=== PATIENT | male | born 1980 | race Two or more races ===

== ENCOUNTER 2016-12-28 09:20 | Emergency (ER) | payer MEDICAID ==
[~2016-12-28] VITALS: Ht 160 cm; Wt 54.4 kg
[2016-12-28] MEDS ORDERED: NKM (09:24)
[2016-12-28] MEDS ORDERED: Ketorolac 30mg Inj IV ONE (09:30)
[2016-12-28 09:31] VITALS: BP 136/82
--- NOTE | 2016-12-28 09:37 | Emergency Room Report ---
History of Present Illness General Chief Complaint: Abdominal Pain Source: Patient, EMS Present Illness HPI The patient is brought in by EMS. He complains of 3 hours of epigastric pain and recurrent nausea and vomiting. He states he has had this previously and been seen at other hospitals for the same. He's been in multiple hospitals for this. He states that he has been diagnosed with gastritis and a couple months ago this had an episode of pancreatitis. He states his symptoms are the same. He states he has a very sensitive stomach and notes that he did eat fast food last night and associates that with his symptoms. He denies alcohol use. He admits to regular marijuana use daily. He has no other complaints. Allergies: Coded Allergies: No Known Allergies (Unverified , 12/28/16) Patient History Past Medical History: see triage record, other - pancreatitis, gastritis Social History: Reports: alcohol use, drug use, Denies: smoking Reviewed Nursing Documentation: PMH: Agreed, PSxH: Agreed Nursing Documentation-PMH Past Medical History: No History, Except For Hx Gastrointestinal Problems: Yes - PANCREATITIS History Of Psychiatric Problem: Yes Review of Systems All Other Systems: negative except mentioned in HPI Physical Exam Vital Signs Date Time Temp Pulse Resp B/P Pulse Ox O2 Delivery O2 Flow Rate FiO2 12/28/16 09:19 90 20 140/80 98 Room Air 12/28/16 09:31 98.6 Sp02 EP Interpretation: reviewed, normal General Appearance: no apparent distress, alert, GCS 15, non-toxic, other - diaphoretic, recurrent vomiting Head: normocephalic, atraumatic Eyes: bilateral eye PERRL, bilateral eye normal inspection ENT: hearing grossly normal, normal pharynx, no angioedema, normal voice Neck: full range of motion, supple/symm/no masses Respiratory: chest non-tender, lungs clear, normal breath sounds, speaking full sentences Cardiovascular #1: regular rate, rhythm, no edema Gastrointestinal: normal bowel sounds, soft, non-distended, no guarding, no rebound, tenderness - epigastrium Rectal: deferred Musculoskeletal: back normal, gait/station normal, normal range of motion, non- tender Neurologic: alert, oriented x3, responsive, motor strength/tone normal, sensory intact, speech normal Psychiatric: judgement/insight normal, memory normal, mood/affect normal, no suicidal/homicidal ideation Skin: normal color, no rash, warm/dry, well hydrated Medical Decision Making Diagnostic Impression: Primary Impression: Gastritis Additional Impression: Cannabinoid hyperemesis syndrome ER Course I suspect this patient has a combination of gastritis and cannibas hyperemesis syndrome. The patient's lipase is slightly elevated. This is likely related to the emesis. The patient admits to heavy marijuana use. He is educated that if he stops using marijuana likely his symptoms will resolve. The patient has has an extensive evaluation at other hospitals to include ultrasound of his gallbladder and CAT scans. These have all been negative. I do not feel that given this patient's history and recurrent multiple episodes that abdominal imaging was indicated at this time. This is based on history, laboratory workup and physical exam. Station cream was applied to this patient's abdomen he had significant relief of his symptoms. I will also prescribe this to the patient. The patient has acid reflux medications at home and does not take them. He was given these medications again and instructed that most likely this would also help his condition. The patient is given close return precautions and followup instructions. Labs Test 12/28/16 09:40 White Blood Count 11.9 K/UL (4.8-10.8) Red Blood Count 4.95 M/UL (4.70-6.10) Hemoglobin 14.8 G/DL (14.2-18.0) Hematocrit 44.6 % (42.0-52.0) Mean Corpuscular Volume 90 FL (80-99) Mean Corpuscular Hemoglobin 29.9 PG (27.0-31.0) Mean Corpuscular Hemoglobin Concent 33.2 G/DL (32.0-36.0) Red Cell Distribution Width 11.9 % (11.6-14.8) Platelet Count 276 K/UL (150-450) Mean Platelet Volume 8.7 FL (6.5-10.1) Neutrophils (%) (Auto) 60.6 % (45.0-75.0) Lymphocytes (%) (Auto) 31.1 % (20.0-45.0) Monocytes (%) (Auto) 5.3 % (1.0-10.0) Eosinophils (%) (Auto) 1.9 % (0.0-3.0) Basophils (%) (Auto) 1.1 % (0.0-2.0) Sodium Level 143 mEQ/L (135-145) Potassium Level 4.1 mEQ/L (3.4-4.9) Chloride Level 104 mEQ/L (98-107) Carbon Dioxide Level 16 mEQ/L (20-30) Anion Gap 23 (5-15) Blood Urea Nitrogen 10 mg/dL (7-23) Creatinine 1.1 mg/dL (0.7-1.2) Estimat Glomerular Filtration Rate > 60 mL/min (>60) Glucose Level 151 mg/dL (74-106) Calcium Level 9.9 mg/dL (8.6-10.2) Total Bilirubin 0.3 mg/dL (0.0-1.2) Aspartate Amino Transf (AST/SGOT) 17 U/L (5-40) Alanine Aminotransferase (ALT/SGPT) 13 U/L (3-41) Alkaline Phosphatase 59 U/L (40-129) Total Protein 7.5 g/dL (6.6-8.7) Albumin 4.9 g/dL (3.5-5.2) Globulin 2.6 g/dL Albumin/Globulin Ratio 1.8 (1.0-2.7) Lipase 78 U/L (< 60) Last Vital Signs Date Time Temp Pulse Resp B/P Pulse Ox O2 Delivery O2 Flow Rate FiO2 12/28/16 09:31 98.6 73 18 136/82 99 Room Air Disposition: HOME, SELF-CARE Condition: Improved Patient Instructions: Gastritis, Adult ZANDRA DANIELS D.O. Dec 28, 2016 09:37
[2016-12-28] MEDS ORDERED: Famotidine 20 MG/ 2ML VIAL IVP ONE (09:45)
[2016-12-28] MEDS ORDERED: Capsaicin 0.075% Cream TOPIC SCH (09:45)
[2016-12-28 10:12] LABS: ALANINE AMINOTRANSFERASE 13 U/L (3-41); ALBUMIN/GLOBULIN RATIO 1.8 (1.0-2.7); ANION GAP 23 (5-15); ASPARTATE AMINO TRANSFERASE 17 U/L (5-40); CALCIUM 9.9 mg/dL (8.6-10.2); CARBON DIOXIDE 16 mEQ/L (20-30); CHLORIDE 104 mEQ/L (98-107); CREATININE 1.1 mg/dL (0.7-1.2); GLOMERULAR FILTRATION RATE > 60 mL/min (>60); HEMOLYSIS 20; LIPASE 78 U/L (< 60); POTASSIUM 4.1 mEQ/L (3.4-4.9); SODIUM 143 mEQ/L (135-145); TOTAL PROTEIN 7.5 g/dL (6.6-8.7)
[2016-12-28 11:04] LABS: BASOPHILS % (AUTO) 1.1 % (0.0-2.0); EOSINOPHILS % (AUTO) 1.9 % (0.0-3.0); LYMPHOCYTES % (AUTO) 31.1 % (20.0-45.0); MEAN CORPUSCULAR HEMOGLOBIN 29.9 PG (27.0-31.0); MEAN CORPUSCULAR HGB CONC 33.2 G/DL (32.0-36.0); MEAN CORPUSCULAR VOLUME 90 FL (80-99); MEAN PLATELET VOLUME 8.7 FL (6.5-10.1); MONOCYTES % (AUTO) 5.3 % (1.0-10.0); NEUTROPHILS % (AUTO) 60.6 % (45.0-75.0); PLATELET COUNT 276 K/UL (150-450); RED BLOOD COUNT 4.95 M/UL (4.70-6.10); RED CELL DISTRIBUTION WIDTH 11.9 % (11.6-14.8); WHITE BLOOD COUNT 11.9 K/UL (4.8-10.8)
[2016-12-28] MEDS ORDERED: PEPCID40 MG PO (11:32)
[2016-12-28] MEDS ORDERED: MAALOX MAXIMUM355 M1 PO (11:32)
[2016-12-28] MEDS ORDERED: DiphenhydrAMINE 50mg/ml Inj IVP ONE (12:00)
[2016-12-28] MEDS ORDERED: Metoclopramide 10mg/2ml Inj IVP ONE (12:15)
[2016-12-28 12:24] VITALS: BP 116/55
[2016-12-28] MEDS ORDERED: Morphine Sulfate 4mg/ml Inj IVP ONE (12:30)
[2016-12-28 13:37] VITALS: BP 119/57
[2016-12-28] MEDS ORDERED: LORazepam Inj 2mg/ml 1ml IV ONE (14:00)
[2016-12-28 14:20] VITALS: BP 121/68
== END 2016-12-28 14:24 | disposition home or self-care (01) ==
LOC: EDBD 09:20 → EMR 09:50
DX: K29.70 Gastritis, unspecified, without bleeding (principal); F12.929 Cannabis use, unspecified with intoxication, unspecified; R11.10 Vomiting, unspecified
CPT/HCPCS: 36415; 80053; 83690; 85025; 96360; 96374; 96375; 99284; J1200; J1885; J2270; J2405; J2765; S0028

== ENCOUNTER 2018-01-01 09:47 | Emergency (ER) | payer MEDICAID ==
[~2018-01-01] VITALS: Ht 170.2 cm; Wt 68.0 kg
[~2018-01-01 09:47] MED LIST: MAALOX MAXIMUM355 M1 PO; NKM; PEPCID40 MG PO
[2018-01-01] MEDS ORDERED: Morphine Sulfate 4mg/ml Inj (IV USE ONLY) IVP ONE (10:00)
[2018-01-01] MEDS ORDERED: Metoclopramide 10mg/2ml Inj IVP ONE (10:00)
[2018-01-01] MEDS ORDERED: DiphenhydrAMINE 50mg/ml Inj IVP ONE (10:00)
[2018-01-01] MEDS ORDERED: LORazepam Inj 2mg/ml 1ml IV ONE (10:00)
[2018-01-01 10:12] LABS: BASOPHILS % (AUTO) 0.7 % (0.0-2.0); EOSINOPHILS % (AUTO) 0.4 % (0.0-3.0); HEMOGLOBIN 14.6 G/DL (14.2-18.0); LYMPHOCYTES % (AUTO) 17.7 % (20.0-45.0); MEAN CORPUSCULAR VOLUME 85 FL (80-99); MONOCYTES % (AUTO) 5.7 % (1.0-10.0); NEUTROPHILS % (AUTO) 75.5 % (45.0-75.0); PLATELET COUNT 349 K/UL (150-450); RED BLOOD COUNT 5.18 M/UL (4.70-6.10); RED CELL DISTRIBUTION WIDTH 11.3 % (11.6-14.8)
[2018-01-01 10:25] LABS: ANION GAP 18 mmol/L (5-15); BLOOD UREA NITROGEN 12 mg/dL (7-18); CALCIUM 9.4 MG/DL (8.5-10.1); CARBON DIOXIDE 20 MMOL/L (21-32); CHLORIDE 102 MMOL/L (98-107); CREATININE 1.3 MG/DL (0.55-1.30); POTASSIUM 3.1 MMOL/L (3.5-5.1); SODIUM 140 MMOL/L (136-145)
[2018-01-01 10:30] LABS: ALANINE AMINOTRANSFERASE 28 U/L (12-78); ALBUMIN 4.4 G/DL (3.4-5.0); ALBUMIN/GLOBULIN RATIO 1.3 (1.0-2.7); ALKALINE PHOSPHATASE 65 U/L (46-116); ASPARTATE AMINO TRANSFERASE 24 U/L (15-37); BILIRUBIN,TOTAL 0.7 MG/DL (0.2-1.0)
--- NOTE | 2018-01-01 11:06 | Emergency Room Report ---
History of Present Illness General Chief Complaint: Abdominal Pain Source: Patient, Medical Record Present Illness HPI Patient present with complaints of diffuse abdominal pain epigastric Reports that he has had this problem off and on for the past few years Patient was at another facility reports [facility] was given medication and prescription however has not been able to fill the medication Patient complains of 10 out of 10 pain Repeated vomiting episodes denies any diarrhea or lower abdominal pain Reports history of previous pancreatitis as well Allergies: Coded Allergies: No Known Allergies (Unverified , 12/28/16) Patient History Past Medical History: see triage record Pertinent Family History: none Reviewed Nursing Documentation: PMH: Agreed; PSxH: Agreed Nursing Documentation-PMH Past Medical History: No History, Except For Hx Gastrointestinal Problems: Yes - PANCREATITIS Review of Systems All Other Systems: negative except mentioned in HPI Physical Exam Vital Signs Date Time Temp Pulse Resp B/P (MAP) Pulse Ox O2 Delivery O2 Flow Rate FiO2 01/01/18 09:45 98.2 98 18 128/80 98 Room Air 98.2 Sp02 EP Interpretation: reviewed, normal General Appearance: mild distress - In acute pain Head: normocephalic, atraumatic Eyes: bilateral eye PERRL, bilateral eye EOMI ENT: hearing grossly normal, normal pharynx, TMs + canals normal, uvula midline Neck: full range of motion, supple, no meningismus, no bony tend Respiratory: lungs clear, normal breath sounds, no rhonchi, no respiratory distress, no retraction, no accessory muscle use Cardiovascular #1: normal peripheral pulses, regular rate, rhythm, no edema, no gallop, no JVD, no murmur Gastrointestinal: normal bowel sounds, non tender, soft, no mass, no organomegaly, non-distended, no guarding, no hernia, no pulsatile mass, no rebound Genitourinary: no CVA tenderness Musculoskeletal: normal inspection Neurologic: oriented x3, responsive, credit rating inspector III-XII nml as tested, motor strength/ tone normal, sensory intact Psychiatric: mood/affect normal Skin: normal color, no rash, warm/dry, palpation normal Lymphatic: normal inspection, no adenopathy Medical Decision Making Diagnostic Impression: Primary Impression: Abdominal pain ER Course With the history exam and presentation, multiple differentials considered, including but not limited to appendicitis, gastritis, cholecystitis, diverticulitis Patient's exam localized to the epigastric region Patient has had multiple acute interventions with medication provided Did do better however still complains of some ongoing discomfort Patient's lower abdomen is soft Patient reports having multiple imaging and therefore repeat imaging is not performed emergently And patient is recommended to follow closely as outpatient Labs Test 01/01/18 10:03 White Blood Count 12.0 K/UL (4.8-10.8) Red Blood Count 5.18 M/UL (4.70-6.10) Hemoglobin 14.6 G/DL (14.2-18.0) Hematocrit 44.0 % (42.0-52.0) Mean Corpuscular Volume 85 FL (80-99) Mean Corpuscular Hemoglobin 28.2 PG (27.0-31.0) Mean Corpuscular Hemoglobin Concent 33.2 G/DL (32.0-36.0) Red Cell Distribution Width 11.3 % (11.6-14.8) Platelet Count 349 K/UL (150-450) Mean Platelet Volume 7.0 FL (6.5-10.1) Neutrophils (%) (Auto) 75.5 % (45.0-75.0) Lymphocytes (%) (Auto) 17.7 % (20.0-45.0) Monocytes (%) (Auto) 5.7 % (1.0-10.0) Eosinophils (%) (Auto) 0.4 % (0.0-3.0) Basophils (%) (Auto) 0.7 % (0.0-2.0) Sodium Level 140 MMOL/L (136-145) Potassium Level 3.1 MMOL/L (3.5-5.1) Chloride Level 102 MMOL/L (98-107) Carbon Dioxide Level 20 MMOL/L (21-32) Anion Gap 18 mmol/L (5-15) Blood Urea Nitrogen 12 mg/dL (7-18) Creatinine 1.3 MG/DL (0.55-1.30) Estimat Glomerular Filtration Rate > 60 mL/min (>60) Glucose Level 162 MG/DL (74-106) Calcium Level 9.4 MG/DL (8.5-10.1) Total Bilirubin 0.7 MG/DL (0.2-1.0) Aspartate Amino Transf (AST/SGOT) 24 U/L (15-37) Alanine Aminotransferase (ALT/SGPT) 28 U/L (12-78) Alkaline Phosphatase 65 U/L (46-116) Total Protein 7.7 G/DL (6.4-8.2) Albumin 4.4 G/DL (3.4-5.0) Globulin 3.3 g/dL Albumin/Globulin Ratio 1.3 (1.0-2.7) Lipase 180 U/L (73-393) Last Vital Signs Date Time Temp Pulse Resp B/P (MAP) Pulse Ox O2 Delivery O2 Flow Rate FiO2 01/01/18 09:45 98.2 98 18 128/80 98 Room Air 98.2 Status: improved Disposition: HOME, SELF-CARE Condition: Improved Scripts Ondansetron* (ZOFRAN*) 4 Mg Tablet 4 MG ORAL Q6H PRN for Nausea & Vomiting, #10 TAB Prov: Bobbi Langley DO 01/01/18 Calcium Carbonate/Simethicone (MAALOX ADVANCED TAB CHEW) 1 Each Tab.chew 1 EACH PO Q12HR for 5 Days, TAB Prov: Bobbi Langley DO 01/01/18 Acetaminophen With Codeine (T#3) (TYLENOL #3 TAB*) Y Tab 1 TAB ORAL Q8H PRN for For Pain, #5 TAB Prov: Bobbi Langley DO 01/01/18 Famotidine (PEPCID AC) 20 Mg Tablet 20 MG PO DAILY for 5 Days, TAB Prov: Bobbi Langley DO 01/01/18 Additional Instructions: Patient is provided with the discharge instructions notified to follow up with primary doctor in the next 2-3 days otherwise return to the er with any worsening symptoms. Please note that this report is being documented using [employer] technology. This can lead to erroneous entry secondary to incorrect interpretation by the dictating instrument. Bobbi Langley DO Jan 01, 2018 11:06
[2018-01-01] MEDS ORDERED: HYDROmorphone 1mg/ml Carpuject IVP ONE (11:15)
[2018-01-01] MEDS ORDERED: ZOFRAN4 M3 ORAL (11:33)
[2018-01-01] MEDS ORDERED: ACETAMINOPHEN-1 EAC1 ORAL (11:33)
[2018-01-01] MEDS ORDERED: MAALOX ADVANCE1 EACH PO (11:33)
[2018-01-01] MEDS ORDERED: PEPCID AC20 M2 PO (11:33)
[2018-01-01 11:43] VITALS: BP 128/80
== END 2018-01-01 11:43 | disposition home or self-care (01) ==
LOC: EDBD 09:47 → EMR 10:19
DX: R10.13 Epigastric pain (principal); Z87.19 Personal history of other diseases of the digestive system
CPT/HCPCS: 36415; 80053; 83690; 85025; 96361; 96374; 96375; 99284; J1170; J1200; J2270; J2405; J2765

== ENCOUNTER 2018-10-17 08:34 | Emergency (ER) | payer MEDICAID ==
[~2018-10-17] VITALS: Ht 172.7 cm; Wt 77.1 kg
[~2018-10-17 08:34] MED LIST changes: +ACETAMINOPHEN-1 EAC1 ORAL; +MAALOX ADVANCE1 EACH PO; +PEPCID AC20 M2 PO; +ZOFRAN4 M3 ORAL
[2018-10-17 08:40] VITALS: BP 127/72
--- NOTE | 2018-10-17 08:40 | NUR ---
ED Nurse Note: Pt was brought to ED tasia RA 834 from home.Pt c/o 03/08 upper abdominal pain since 529 today, VSS. Pt is A&Ox4. Pt did not medicate this morning, denies SOB or chest pain.
[2018-10-17] MEDS ORDERED: Capsaicin 0.075% Cream TOPIC ONE (08:45)
[2018-10-17] MEDS ORDERED: Ketorolac 30mg Inj IV ONE (08:45)
[2018-10-17 08:59] LABS: BASOPHILS % (AUTO) 0.8 % (0.0-2.0); EOSINOPHILS % (AUTO) 1.9 % (0.0-3.0); HEMOGLOBIN 15.4 G/DL (14.2-18.0); LYMPHOCYTES % (AUTO) 21.4 % (20.0-45.0); MEAN CORPUSCULAR VOLUME 87 FL (80-99); MONOCYTES % (AUTO) 4.2 % (1.0-10.0); NEUTROPHILS % (AUTO) 71.7 % (45.0-75.0); PLATELET COUNT 331 K/UL (150-450); RED BLOOD COUNT 5.31 M/UL (4.70-6.10); RED CELL DISTRIBUTION WIDTH 12.1 % (11.6-14.8)
[2018-10-17] MEDS ORDERED: Morphine Sulfate 4mg/ml Inj (IV USE ONLY) IVP ONE ×2 (09:00→09:45)
--- NOTE | 2018-10-17 09:00 | NUR ---
ED Nurse Note: Pt refused mylanta and lidocaine PO, states "it makes me sick", ER MD notified
[2018-10-17 09:07] LABS: ANION GAP 17 mmol/L (5-15); BLOOD UREA NITROGEN 12 mg/dL (7-18); CALCIUM 9.7 MG/DL (8.5-10.1); CARBON DIOXIDE 22 MMOL/L (21-32); CHLORIDE 104 MMOL/L (98-107); CREATININE 1.3 MG/DL (0.55-1.30); POTASSIUM 3.7 MMOL/L (3.5-5.1); SODIUM 143 MMOL/L (136-145)
[2018-10-17 09:11] LABS: ALANINE AMINOTRANSFERASE 21 U/L (12-78); ALBUMIN 4.5 G/DL (3.4-5.0); ALBUMIN/GLOBULIN RATIO 1.2 (1.0-2.7); ALKALINE PHOSPHATASE 81 U/L (46-116); ASPARTATE AMINO TRANSFERASE 17 U/L (15-37); BILIRUBIN,TOTAL 0.3 MG/DL (0.2-1.0)
--- NOTE | 2018-10-17 09:34 | NUR ---
ED Nurse Note: U/S tech at bedside. RN removed IV 20g from left AC. No redenss or swelling noted. Applied clean, dry dressing. RN establish IV 20g to left hand and NS is infusing.
[2018-10-17] MEDS ORDERED: Lidocaine 2% Visc 15ml soln ORAL ONE (09:45)
--- NOTE | 2018-10-17 10:29 | Diagnostic Imaging Report ---
Indication: 38-year-old man. Severe epigastric pain. History of acute pancreatitis. Technique: Grayscale and duplex Doppler imaging of the abdomen performed. Comparison: None Findings: The patient had multiple episodes of emesis during the procedure and was not able to fully cooperate. The study was thereby limited. The liver is unremarkable. The gallbladder is unremarkable. The demonstrated part of the pancreas, aorta and IVC show no abnormalities. Both kidneys appear unremarkable. The spleen is normal in size. There is no biliary ductal dilatation identified. CBD is 3.7 mm. Doppler evaluation of the main portal vein shows patency. There is no ascites. No hydronephrosis seen. Impression: No acute findings.
[2018-10-17] MEDS ORDERED: Isovue-300 100ml vial INJ PRN (10:30)
[2018-10-17] MEDS ORDERED: Metoclopramide 10mg/2ml Inj IVP ONE (10:45)
--- NOTE | 2018-10-17 10:46 | NUR ---
ED Nurse Note: Pt off floor to CT
--- NOTE | 2018-10-17 10:55 | NUR ---
ED Nurse Note: Pt back from CT, Reglan given per order
[2018-10-17 10:57] LABS: APPEARANCE,URINE CLEAR; BILIRUBIN, URINE NEGATIVE (NEGATIVE); GLUCOSE, URINE (UA) NEGATIVE (NEGATIVE); KETONES,URINE 3+ (NEGATIVE); LEUKOCYTE ESTERASE ,URINE 1+ (NEGATIVE); NITRITE,URINE NEGATIVE (NEGATIVE); PH,URINE 6 (4.5-8.0); PROTEIN,URINE 2+ (NEGATIVE); UROBILINOGEN,URINE NORMAL MG/DL (0.0-1.0)
[2018-10-17 11:14] LABS: COLOR,URINE YELLOW
[2018-10-17] MEDS ORDERED: LORazepam Inj 2mg/ml 1ml IV ONE (11:15)
--- NOTE | 2018-10-17 11:17 | NUR ---
t rosa maria, A&OED Nurse Note: Pt signed out AMA, Dr Abreu aware. Pt VSS, 03/08 pain, A&Ox4, advised to come back to ED if symptoms persist, verbalized understanding
--- NOTE | 2018-10-17 11:17 | NUR ---
Note willa in EDM - 10/17/18 at 1119 by KDEARING Saray louis&KULDEEP Nurse Note: Pt signed out AMA, Dr Lois pruitt. Pt VSS, 03/08 pain, A&Ox4, advised to come back to ED if symptoms persist, verbalized understanding
[2018-10-17 11:19] VITALS: BP 134/78
--- NOTE | 2018-10-17 11:19 | NUR ---
ED Nurse Note: Pt signed out AMDr Lois So. Pt VSS, 03/08 pain, A&Ox4, advised to come back to ED if symptoms persist, verbalized understanding Addendum: 10/17/18 at 1124 by KDEARING ED Nurse Note: All medical deviecs such as ID band removed. Pt is AAO x4, ambulatory and left with all personal belongings.
--- NOTE | 2018-10-17 11:34 | Diagnostic Imaging Report ---
Indication: Abdominal pain Technique: Continuous helical transaxial imaging of the abdomen and pelvis was obtained from the lung bases to the pubic symphysis. No intravenous contrast was administered. Coronal 2-D reformats were also obtained. Automatic Exposure Control was utilized. Total Dose length Product (DLP): 520.[address] Dose Index Volume (CTDIvol): 10.92 mGy Comparison: none Findings: Lung bases are clear. There is mild increased density of some of the medullary pyramids in the kidneys without definite measurable stones. There is no hydronephrosis. Findings likely indicate medullary nephrocalcinosis. The appendix is normal. Bowel gas pattern is nonobstructive. There is no free fluid. The bladder is nondistended. Gallbladder is unremarkable. There is slight nodularity of the left adrenal gland. IMPRESSION: Suspected medullary nephrocalcinosis. Referral and further clinical evaluation is suggested. No hydronephrosis or stones. Normal appendix. The CT scanner at [facility] is accredited by the [employer] and the scans are performed using dose optimization techniques as appropriate to a performed exam including Automatic Exposure control.
--- NOTE | 2018-10-17 11:40 | Emergency Room Report ---
History of Present Illness General Chief Complaint: Abdominal Pain Source: Patient, EMS Present Illness HPI This patient states he has a history of pancreatitis. He states his last diagnosis was a year and half ago. He denies alcohol use. He does admit to marijuana use. He complains of epigastric pain and recurrent nausea and vomiting. He denies recent illness. He states his symptoms started suddenly around 6 AM this morning. He denies fever or chills. He denies headache or neck pain. He denies chest pain or shortness of breath. He has no other complaints. Allergies: Coded Allergies: No Known Allergies (Unverified , 12/28/16) Nursing Documentation-[facility] Past Medical History: No History, Except For Hx Gastrointestinal Problems: Yes - Pancreatitis History Of Psychiatric Problem: Yes - Anxiety, Depression Physical Exam Vital Signs Date Time Temp Pulse Resp B/P (MAP) Pulse Ox O2 Delivery O2 Flow Rate FiO2 10/17/18 08:30 97.7 83 22 99 Room Air 10/17/18 08:40 127/72 Medical Decision Making Last Vital Signs Date Time Temp Pulse Resp B/P (MAP) Pulse Ox O2 Delivery O2 Flow Rate FiO2 10/17/18 11:19 98.7 99 22 134/78 99 Room Air Disposition: HOME, SELF-CARE Condition: Stable Referrals: NOT CHOSEN IPA/,REFERRING (PCP) Eri Abreu DO October 17, 2018 11:40
--- NOTE | 2018-10-18 20:25 | Cardiology Report ---
APPROVED REPORT EKG Measurement Heart [id number] Normal sinus rhythm ST elevation, probably due to early repolarization Borderline ECG
== END 2018-10-17 11:19 | disposition left against medical advice (07) ==
LOC: EDBD 08:34 → EMR 09:00 → CANBEDREQ 11:17 → EMR 11:19
DX: R10.13 Epigastric pain (principal); R11.2 Nausea with vomiting, unspecified; F32.9 Major depressive disorder, single episode, unspecified; F41.9 Anxiety disorder, unspecified
CPT/HCPCS: 36415; 74176; 76700; 80053; 80307; 81003; 83690; 85025; 93005; 96361; 96374; 96375; 96376; 99284; J1885; J2270; J2405; J2765; S0028